=== PATIENT | male | born 2000 | race Caucasian/White ===

== ENCOUNTER → 2022-06-11 | Outpatient (RCR) | payer OTHER | LOC: WSOH | DX: S60.221A Contusion of right hand, initial encounter (principal); Y99.0 Civilian activity done for income or pay ==

== ENCOUNTER 2022-06-21 08:06 | Outpatient (RCR) | payer OTHER | END 2022-07-12 | disposition home or self-care (01) | LOC: WSOH | DX: S60.221D Contusion of right hand, subsequent encounter (principal); Y99.0 Civilian activity done for income or pay ==